=== PATIENT | male | born 1955 | race Caucasian/White ===

== ENCOUNTER 2017-03-22 15:48 | Emergency (ER) | payer OTHER ==
[~2017-03-22] VITALS: Ht 177.8 cm; Wt 68.0 kg
[2017-03-22 15:48] VITALS: BP 130/82
--- NOTE | 2017-03-22 15:48 | NUR ---
Patient was BIBA and taken to bed 07 via gurney per EMS.
--- NOTE | 2017-03-22 15:50 | NUR ---
Walt roblesrachna in EDM - 03/22/17 at 1613 by [facility] 61M SYD FROM [facility]IDE [facility] C/O ETOH X TODAY; PT ADMITS TO DRINKING 2 BEERS, AWAKE, ALERT ON ARRIVAL. HX: STOMACH CANCER FOR 12 YEARS
--- NOTE | 2017-03-22 16:00 | NUR ---
Patient being evaluated by DR FERNANDEZ at bedside.
[2017-03-22] MEDS ORDERED: NACL 0.9% 1,000 ML IV ONE (16:15)
--- NOTE | 2017-03-22 16:24 | NUR ---
LAB AT BEDSIDE.
[2017-03-22 16:44] VITALS: BP 78/82
--- NOTE | 2017-03-22 16:44 | NUR ---
Patient discharged with v/s stable. Written and verbal after care instructions given and explained. Patient verbalized understanding. Ambulatory with steady gait. All questions addressed prior to discharge. Advised to follow up with PMD.
== END 2017-03-22 16:44 | disposition home or self-care (01) ==
LOC: MED 15:48
DX: F10.129 Alcohol abuse with intoxication, unspecified (principal); Z85.028 Personal history of other malignant neoplasm of stomach
CPT/HCPCS: 36415; 99283; G0482; J7030

== ENCOUNTER 2017-12-12 13:52 | Emergency (ER) | payer OTHER ==
[~2017-12-12] VITALS: Ht 175.3 cm; Wt 68.0 kg
[2017-12-12 14:05] VITALS: BP 108/62
[2017-12-12 15:57] VITALS: BP 110/65
== END 2017-12-12 16:40 | disposition left against medical advice (07) ==
LOC: MED 13:52
DX: R40.4 Transient alteration of awareness (principal); Z53.21 Procedure and treatment not carried out due to patient leaving prior to being seen by health care provider

== ENCOUNTER 2019-02-11 19:51 | Emergency (ER) | payer OTHER ==
[~2019-02-11] VITALS: Ht 177.8 cm; Wt 63.5 kg
[2019-02-11 19:51] VITALS: BP 124/79
--- NOTE | 2019-02-11 20:11 | NUR ---
TO ER BED 4 VIA WHEELCHAIR
--- NOTE | 2019-02-11 20:12 | NUR ---
63 YO M BIBA VIA [facility] BLS FROM FIELD; PT FOUND INTOXICATED IN PARK. PT ARRIVES AWAKE, A/O TO PERSON, PURPOSE. CONFUSED ABOUT PLACE AND DATE. PT ADMITS TO DRINKING BEER. INTOXICATED BEHAVIOR NOTED; SLURRED, SLOW SPEECH, EXAGGERATED GESTURES. STRONG ETOH ODOR NOTED. PT IS ALSO HARD OF HEARING. PT IS ABLE TO FOLLOW SIMPLE COMMANDS. ANSWERS QUESTIONS ABLE. DENIES PAIN AT THIS TIME. NO SIGNS OF TRAUMA OR INJURY NOTED. -- PT AWAKE, A/O X 4, CALM, COOPERATIVE. BEHAVIOR AGE APPROPRIATE. -- SKIN PINK, WARM, DRY. BREATHING EVEN, UNLABORED. PMH-- STOMACH CA, CIRHOSSIS RX-- UNOBTAINABLE
[2019-02-11] MEDS ORDERED: NACL 0.9% 1,000 ML IV ONE (20:25)
--- NOTE | 2019-02-11 20:40 | NUR ---
PT AMBULATED TO WITH STEADY GAIT.
--- NOTE | 2019-02-11 21:35 | NUR ---
PT RESTING COMFORTABLY IN BED. AROUSABLE TO VERBAL STIMULI. PT DENIES PAIN OR DISCOMFORT. SKIN PINK, WARM, DRY. BREATHING EVEN, UNLABORED.
--- NOTE | 2019-02-11 22:24 | NUR ---
PT RESTING COMFORTABLY IN BED. AROUSABLE TO VERBAL STIMULI. PT DENIES PAIN OR DISCOMFORT. SKIN PINK, WARM, DRY. BREATHING EVEN, UNLABORED.
--- NOTE | 2019-02-11 22:50 | NUR ---
PT APPROACHED NURSING STATION STATING "I WANT TO GO HOME. TELL THE DOCTOR I WANT TO GO HOME". BLOOD RUNNING DOWN ARM NOTED; PT PULLED OUT IV. DR. BISHOP MADE AWARE. OK TO DISCHARGE. PRESSURE AND GAUZE APPLIED TO IV SITE. BLEEDING CONTROLLED. PT REFUSED HOMELESS PACKET AND FOOD. PT STATES "I JUST WANT TO LEAVE".
[2019-02-11 22:55] VITALS: BP 123/61
--- NOTE | 2019-02-11 22:55 | NUR ---
Patient given written and verbal discharge instructions and verbalizes understanding. Given copies of tests performed during visit. Patient is awake, alert and oriented. Ambulatory with steady gait. Refuses offer of snf placement. Given list of available shelters in surrounding areas.
== END 2019-02-11 22:55 | disposition home or self-care (01) ==
LOC: MED 19:51
DX: F10.129 Alcohol abuse with intoxication, unspecified (principal); K74.60 Unspecified cirrhosis of liver; Z85.9 Personal history of malignant neoplasm, unspecified; Z98.890 Other specified postprocedural states; Y90.9 Presence of alcohol in blood, level not specified
CPT/HCPCS: 99283; J7030